=== PATIENT | female | born 1960 | race Caucasian/White ===

== ENCOUNTER 2020-11-15 08:17 | Day surgery (SDC) | payer BC ==
[~2020-11-15 08:17] MED LIST: CALCIUM600 MG PO; FLONASE2 SPRAY NS; MULTI VITAMIN1 EACH PO; OMEPRAZOLE20 MG PO
[2020-11-15] MEDS ORDERED: MONTELUKAST SOD10 MG PO (11:31)
[2020-11-15] MEDS ORDERED: VENTOLIN HFA18 GM INH (11:32)
[2020-11-15] MEDS ORDERED: FLOVENT HFA12 G1 INH (11:32)
[2020-11-15] MEDS ORDERED: AZELASTINE137 MCG/0. NAS (11:33)
[2020-11-15] MEDS ORDERED: FLUNISOLIDE1 SPRAY NAS (11:34)
[2020-11-15] MEDS ORDERED: ALLER-EASE180 MG PO (11:36)
--- NOTE | 2020-11-15 13:32 | NUR ---
11/15/20 1332 Zaynab Gan 1327- PT ARRIVES TO PACU AWAKE AND TALKING. PT REPORTS PAIN A 7/10 CRAMPING IN HER ABD. PT ENCOURAGED TO PASS FLATUS TO HELP WITH THIS. PT STATES UNDERSTANDING. RESP EVEN AND UNLABORED. OXYGEN SAT HIGH 90'S TO 100% ON 2L VIA NC.
--- NOTE | 2020-11-19 14:31 | OR ---
[facility] [address], [place] [address] Signed DATE OF OPERATION: 11/15/2020 SURGEON: Giana Thayer MD PREOPERATIVE DIAGNOSIS: Episodic rectal bleeding. POSTOPERATIVE DIAGNOSES: 1. Internal hemorrhoidal changes. 2. Diverticulosis. PROCEDURE: Total colonoscopy to cecum. ANESTHESIA: Intravenous sedation; fentanyl 150 mcg and Versed 7 mg. INDICATION: This 60-year-old white woman is a patient of RHONDA Estrada. The patient was last seen by me in January of 2019, referred more recently for reflux symptoms and prior symptomatic CCK HIDA test. Her main complaint upon evaluation more recently was diarrhea as well as rectal bleeding. She has had colonoscopy in the past, which was normal. She had a fissure in the past and was treated with conservative measures, which allowed for recovery. She has no family history of colon cancer. Her last colonoscopy was normal in 2012. Upper endoscopy in 2010 was negative except for a hiatal hernia. A CCK-HIDA test was undertaken showing an ejection fraction of 83%, but with some reproduction of her symptoms. She is admitted at this time to undergo colonoscopy on the basis of her rectal bleeding. She understands the risks of bleeding, infection, and perforation. FINDINGS: Prep was excellent. Complete colonoscopy was undertaken to the cecum without question. She had several diverticula of the sigmoid and left colon and some internal hemorrhoidal changes. There was no sign of active bleeding at this time. There were no polyps, no cancer, and no colitis. DESCRIPTION OF PROCEDURE: The patient was brought to the endoscopy suite and placed in lateral decubitus position, given intravenous sedation to the point of slurred speech and nystagmus. Digital rectal examination was normal. Electronically Signed By: GIANA THAYER MD 11/19/20 1431 PATIENT NAME: JERAMY REILLY OPERATIVE REPORT DATE OF : 64 REPORT #: [id number] PHYSICIAN: GIANA THAYER MD PCP: RADHA FRANCE REPORT IS CONFIDENTIAL AND NOT TO BE RELEASED WITHOUT AUTHORIZATION [facility] [address], [place] [address] Signed An Olympus video colonoscope was passed in the rectum and manipulated throughout the colon noting diverticulosis of the sigmoid and left colon. The scope was ultimately advanced to the cecum. The cecum could not be fully intubated and therefore biopsy Forceps was used to withdraw the mucosa behind the ileocecal valve into view, which showed no sign of abnormality. The scope was withdrawn and a careful examination throughout showed no sign of polyps, only diverticular changes of the sigmoid and left colon as described. Retroflexed view showed small nonbleeding internal hemorrhoidal changes. The scope was removed and the patient was taken to the recovery room in good condition. CONCLUDING DIAGNOSIS: Diverticulosis of sigmoid and left colon and some internal hemorrhoidal change. PLAN: Recommend high-fiber diet. If rectal bleeding should recur, consideration will be made for hemorrhoidal banding. Notably, the patient has also undergone an ultrasound of her thyroid earlier in the day and I will review those findings if available and convey them to the patient as well. MD ROLANDO Barboza/NADJA /[id number] cc: RHONDA Estrada Copies: RADHA FRANCE ~ Electronically Signed By: GIANA THAYER MD 11/19/20 1431 PATIENT NAME: JERAMY REILLY OPERATIVE REPORT DATE OF : 64 REPORT #: [id number] PHYSICIAN: GIANA THAYER MD PCP: RADHA FRANCE REPORT IS CONFIDENTIAL AND NOT TO BE RELEASED WITHOUT AUTHORIZATION
== END 2020-11-15 14:10 | disposition home or self-care (01) ==
LOC: OPS 08:17 → DS 08:17 → OPS 13:00 → DS 13:00 → OPS 14:10
PROVIDERS: ATTEND Surgery
PROC: 0DJD8ZZ Inspection of Lower Intestinal Tract, Via Natural or Artificial Opening Endoscopic (ICD-10-PCS; principal; 2020-11-15 13:00)
DX: K64.8 Other hemorrhoids (principal); K57.30 Diverticulosis of large intestine without perforation or abscess without bleeding; K21.9 Gastro-esophageal reflux disease without esophagitis; J45.909 Unspecified asthma, uncomplicated; G47.30 Sleep apnea, unspecified; E04.1 Nontoxic single thyroid nodule; E66.9 Obesity, unspecified; Z68.39 Body mass index [BMI] 39.0-39.9, adult
CPT/HCPCS: 99153; G0500; J2250; J3010; J7121